=== PATIENT | female | born 2000 | race Caucasian/White ===

== ENCOUNTER 2023-01-27 19:24 | Outpatient (REF) | payer OTHER, SELFPAY ==
[2023-02-02 14:09] LABS: Age Gdln ACOG Testing Note (.); IGP, rfx Aptima HPV ASCU Note (.)
== END 2023-01-27 19:25 | disposition home or self-care (01) ==
LOC: LAB 19:24
PROVIDERS: PCP Family Medicine; Visit Provider Physician Assistant
DX: Z01.419 Encounter for gynecological examination (general) (routine) without abnormal findings (principal)
CPT/HCPCS: G0145

== ENCOUNTER 2024-01-31 22:23 | Outpatient (REF) | payer OTHER, SELFPAY ==
[2024-02-08 12:10] LABS: Age Gdln ACOG Testing Note (.); IGP, rfx Aptima HPV ASCU Note (.)
== END 2024-01-31 22:24 | disposition home or self-care (01) ==
LOC: LAB 22:23
PROVIDERS: PCP Family Medicine; Visit Provider Physician Assistant
DX: Z01.419 Encounter for gynecological examination (general) (routine) without abnormal findings (principal)
CPT/HCPCS: 88175